=== PATIENT | male | born 1955 | race Caucasian/White ===

== ENCOUNTER 2017-10-13 13:38 | Emergency (ER) | payer OTHER ==
[2017-10-13 14:38] VITALS: BP 136/95
--- NOTE | 2017-10-13 16:48 | UC ---
Back Pain HPI - HPI Summary HPI Summary: 62 y/o male presents to the urgent care c/o lower back pain and tailbone pain s /p falling down 6 wood stairs yesterday. Pt reports his tailbone hit all the stairs and ended on a brick walk way. He applied ice and took some Tylenol PO for pain. At first, he had mild numbness around the back , but it has resolved today. This morning he woke up w/ a lot of pain. Pain is 8/10 w/ movement. when he steps on his left foot pain radiates to the left lower leg. When he steps w/ Rt foot pain radiates upwards. Upper back also hurts. Pt denies saddle anesthesia, fecal or urinary incontinence, SOB, chest pain, abdominal pain, N/V/ D. Pt hs Hx of sciatica. - History of Current Complaint Chief Complaint: UCBackPain Stated Complaint: FELL TAILBONE INJURY Time Seen by Provider: 10/13/17 16:31 Hx Obtained From: Patient Onset/Duration: Gradual Onset, Lasting Days - 1 day, Worse Since - today Timing: Constant Severity Initially: Moderate Severity Currently: Moderate Pain Intensity: 8 Pain Scale Used: 0-10 Numeric Back Pain: Is Discrete @ - upper and lower back including tailbone, Radiates To - left lower leg Character: Sharp, Spasmodic Aggravating Factor(s): Movement, Lifting, Bending, Walking Alleviating Factor(s): Rest, Cold, OTC Meds Associated Signs And Symptoms: Positive: Swelling - mild, Bruising - RT upper gluteus, Pain with Weight Bearing. Negative: Fever, Weakness, Numbness, Tingling, Abdominal Pain, Flank Pain, Bladder Incontinence, Bowel Incontinence, Weight Loss - Risk Factors AAA Risk Factors: Negative TAD Risk Factors: Negative Cauda Equina Risk Factors: Negative Epidural Abscess Risk Factors: Negative - Allergies/Home Medications Allergies/Adverse Reactions: Allergies Allergy/AdvReac Type Severity Reaction Status Date / Time No Known Allergies Allergy Verified 10/13/17 14:38 Home Medications: Home Medications Tamsulosin CAP* [Flomax CAP*] 0.4 mg PO DAILY 10/13/17 [History Confirmed ] PMH/Surg Hx/FS Hx/Imm Hx Previously Healthy: Yes Other GI/ History: BPH Other Neurological History: Sciatica - Surgical History Surgical History: Yes Surgery Procedure, Year, and Place: 2010 - Family History Known Family History: Positive: Cardiac Disease, Hypertension - Social History Occupation: Employed Full-time Lives: With Family Alcohol Use: None Substance Use Type: None Smoking Status (MU): Heavy Every Day Tobacco Smoker Type: Cigarettes Amount Used/How Often: 1+ppd Review of Systems Constitutional: Negative Skin: Bruising - RT upper gluteus Eyes: Negative ENT: Negative Respiratory: Negative Cardiovascular: Negative Gastrointestinal: Negative Genitourinary: Negative Motor: Negative Neurovascular: Negative Musculoskeletal: Decreased ROM - lower back, Other: - lower and upper pain s/p fall, tailbone pain Neurological: Negative Psychological: Negative Is Patient Immunocompromised?: No All Other Systems Reviewed And Are Negative: Yes Physical Exam Triage Information Reviewed: Yes Vital Signs: Initial Vital Signs Temp 98.4 F 10/13/17 14:32 Pulse 75 10/13/17 14:32 Resp 16 10/13/17 14:32 BP 136/95 10/13/17 14:32 Pulse Ox 97 10/13/17 14:32 - Additional Comments Appearance: Well-Appearing, Well-Nourished, male sitting in the examining table w/o any apparent distress. Vital Signs Reviewed: Yes Eyes: Positive: Conjunctiva Clear - PERRLA, EOMI. ENT: Positive: Normal ENT inspection, Hearing grossly normal, Pharynx normal, TMs normal, Uvula midline Neck: Positive: Supple, Nontender, No Lymphadenopathy Respiratory: Positive: Chest non-tender, Lungs clear, Normal breath sounds, No respiratory distress Cardiovascular: Positive: RRR, No Murmur, Pulses Normal, Brisk Capillary Refill Abdomen Description: Positive: Nontender, No Organomegaly, Soft. Negative: CVA Tenderness (R), CVA Tenderness (L) Bowel Sounds: Positive: Present Musculoskeletal: Positive: Strength Intact, Other: - BACK: Patient walked into the urgent care room with mild limping, able to bear weight. Mild bruising and ecchymosis, observed on the upper RT gluteus, tender to palpation. No masses palpated. Point tenderness at the level of L5-S1-S5, Point tenderness over the coccyx. No CVAT, no flank ecchymosis . No sacroiliac notch tenderness, No saddle anesthesia.ROM: limited due to pain, Straight Leg Raise:unable to performed due to pain. Patellar reflexes: brisk, symmetric Muscle strength lower extremities. Dorsiflexion/ plantar flexion of ankles. Heel/ toe walk. Lower extremities: Femoral, popliteal, posterior tibial, and dorsalis pedis pulses WNL. Pt refuse rectal exam Neurological: Positive: Alert, Muscle Tone Normal Psychological Exam: Normal Skin Exam: Normal Back Pain Course/Dx - Course Course Of Treatment: 62 y/o male presents to the urgent care c/o lower back pain and tailbone pain s/p falling down 6 wood stairs yesterday. Pt reports his tailbone hit all the stairs and ended on a brick walk way. He applied ice and took some Tylenol PO for pain. At first, he had mild numbness around the back , but it has resolved today. This morning he woke up w/ a lot of pain. Pain is 8/10 w/ movement. when he steps on his left foot pain radiates to the left lower leg. When he steps w/ Rt foot pain radiates upwards. Upper back also hurts. Pt denies saddle anesthesia, fecal or urinary incontinence, SOB, chest pain, abdominal pain, N/V/D. Thoracolumbar and sacrum-coccyx X-ray ordered, Impression: No acute osseous injury or dislocation observed on sacrum or coccyx , mild degenerative disc disese of thoracic spine. Pt given a toradol IM inj at the clinic and pain decreae and Pt felt better.Given by nurse. Pt Rx Naproxen PO, flexeril PO and advice to wear a back support and use a donut U-shape chusion for sitting. Patient was instructed to f/u wit orthopedic Dr Tran in 1 week if symptoms do not improve or worsen. Patient understands and agrees. Patient is able to ambulate freely w/o aid or limp. Plan of care was discussed with the patient and patient understands and agrees.Pt's BP is elevated today advised to decrease salt in diet, monitor BP and f/u with PCP for further management. All questions were answered at patient satisfaction. Pt left clinic hemodynamically stable. - Differential Dx/Diagnosis Differential Diagnosis/HQI/PQRI: Arthritis, Cauda Equina Syndrome, Compressive Cord Syndrome, Fracture, Herniated Disc, Renal Colic, Strain, Sprain, Other - DDD Provider Diagnoses: 1- Acute lower back pain s/p fall. 2-Coccyx injury. 3- Back spasm. 4-Degenerative disc disease. 5-Elevated BP w/o Hx of HTN Discharge - Discharge Plan Condition: Stable Disposition: HOME Prescriptions: Cyclobenzaprine TAB* [Flexeril 10 MG TAB*] 10 mg PO TID PRN #15 tab PRN Reason: Spasms - Back methylPREDNISolone [Medrol Dosepak 4 MG*] 4 mg PO .SEE DIEGO INSTRUCTION #1 diego Naproxen [Naproxen 500 mg] 500 mg PO Q8H PRN #30 tab PRN Reason: Pain Patient Education Materials: Coccyx Injury (ED), Low Back Strain (ED), Low- Sodium Diet (ED), Degenerative Disc Disease (ED) Forms: *Work Release Referrals: [facility] [facility] [Outside] - 1 Week James Tran MD [Medical Doctor] - 1 Week Additional Instructions: 1- Please take Naproxen PO as directed after meals for pain. 2- Take Flexeril PO as directed for muscle spasm.Please do not drive while taking the medication. 3- Wear a u-shape donut cushion everytime you seat asn a back support . Avoid strenuous exercise of heavy lifting. 4- Please follow up with Orthopedic Dr Tran in 1 weeks if not improvement of symptoms, for further management. 5-Your BP is elevated today. please decrease salt in your diet, monitor BP and if it continues to be elevated please f/u with your PCP for further management
[2017-10-13] MEDS ORDERED: Ketorolac INJ* 30 MG/ML 1 ML VIAL IM ONE (17:04)
--- NOTE | 2017-10-13 17:11 | RAD ---
INDICATION: Mid thoracic spine pain after a fall COMPARISON: None. TECHNIQUE: 2 views of the thoracic spine were obtained. FINDINGS: The vertebra are in normal alignment. No fracture is seen. Mild degenerative changes include loss of intervertebral disc height and mild anterior marginal osteophyte formation at the anterior thoracic spine. Incidentally noted are surgical clips overlying the gallbladder fossa consistent with a history of cholecystectomy. There is coarse atherosclerotic calcification overlying the infrarenal lower abdominal aorta just above the and the iliac bifurcation. IMPRESSION: Degenerative changes of the thoracic spine as described above without radiographically apparent fracture or dislocation.
--- NOTE | 2017-10-13 17:12 | RAD ---
Indication: Sacrococcygeal pain after a slip and fall injury the previous day Comparison: None. Technique: AP and lateral views sacrum and coccyx. Report: The visualized bones of the sacrum and coccyx are well-corticated and properly aligned. The joint spaces are adequately maintained. There is no radiographically apparent acute fracture or dislocation. IMPRESSION: No radiographically apparent fracture or dislocation. If the patient's symptoms persist, follow-up imaging is recommended.
== END 2017-10-13 17:50 | disposition home or self-care (01) ==
LOC: UCEAST 13:38
DX: S39.92XA Unspecified injury of lower back, initial encounter (principal); S30.0XXA Contusion of lower back and pelvis, initial encounter; W10.9XXA Fall (on) (from) unspecified stairs and steps, initial encounter; Y93.89 Activity, other specified; Y92.9 Unspecified place or not applicable; M62.830 Muscle spasm of back; M51.34 Other intervertebral disc degeneration, thoracic region; M54.40 Lumbago with sciatica, unspecified side; R03.0 Elevated blood-pressure reading, without diagnosis of hypertension; N40.0 Benign prostatic hyperplasia without lower urinary tract symptoms; F17.210 Nicotine dependence, cigarettes, uncomplicated
CPT/HCPCS: 72080; 72220; 96372; 99212; G0463; J1885